=== PATIENT | female | born 1960 | race American Indian/Alaskan Native ===

== ENCOUNTER 2016-04-30 14:32 | Outpatient (CLI) | payer BC ==
--- NOTE | 2016-04-30 15:15 | Ultrasound Report ---
ULTRASOUND EXTREMITY NONVASCULAR LEFT History: Soft tissue mass in left arm. Findings: Targeted ultrasound with color Doppler interrogation was performed in the left upper arm at the site of the mass. The images demonstrate an approximate 3.2 x 1.3 x 1.2 cm subcutaneous mass in this area. This lesion demonstrates the same echogenicity as surrounding fat. There is no evidence for soft tissue mass, calcification or fluid collection. Impression: Lipoma.
--- NOTE | 2016-04-30 15:44 | Mammography Report ---
BILATERAL MAMMOGRAM: FINDINGS: There are scattered fibroglandular densities (approximately 25%-50% glandular). No mass, distortion, suspicious calcification, or skin change is seen. There are no significant changes compared to her prior exams of April 2014 and . CAD was utilized. IMPRESSION: Negative mammogram. There is no mammographic evidence of malignancy. RECOMMENDATION: Follow-up per ACS guidelines. BI-RADS CATEGORY: 1 = Negative ACR BI-RADS MAMMOGRAPHIC CODES: 0 = Needs additional imaging evaluation; 1 = Negative; 2 = Benign; 3 = Probably benign; 4 = Suspicious; 5 = Malignant; 6 = Known biopsy-proven malignancy COMMENT: 1. Dense breast tissue, i.e., adenosis, fibrocystic changes, etc., may obscure an underlying neoplasm. 2. Approximately 10% of cancers are not detected with mammography. 3. A negative mammography report should not delay biopsy if a clinically suspicious mass is present. COMMENT: Patient follow-up letters are generated in [employer].
== END 2016-04-30 14:33 | disposition home or self-care (01) ==
LOC: MAMMO 14:32
PROVIDERS: ATTEND Family Medicine Adult Medicine
DX: Z12.31 Encounter for screening mammogram for malignant neoplasm of breast (principal); D17.22 Benign lipomatous neoplasm of skin and subcutaneous tissue of left arm; M79.89 Other specified soft tissue disorders
CPT/HCPCS: 76881; G0202; 77067